=== PATIENT | male | born 1955 | race Caucasian/White ===

== ENCOUNTER 2017-07-06 11:35 | Day surgery (SDC) | payer OTHER ==
[~2017-07-06] VITALS: Ht 172.7 cm; Wt 93.2 kg
[2017-07-06] MEDS ORDERED: LISINOPRIL (11:58)
[2017-07-06] MEDS ORDERED: OMEPRAZOLE (11:58)
[2017-07-06 12:00] VITALS: Ht 172.7 cm; Wt 93.2 kg
[2017-07-06 13:03] VITALS: BP 137/81; PULSE 72; RESP 18
--- NOTE | 2017-07-06 13:45 | OPPN ---
Date/Time of Note Date/Time of Note DATE: 07/06/17 TIME: 13:43 Operative Report Preoperative Diagnosis Screening Postoperative Diagnosis Small transverse colon polyp Internal hemorrhoids Operation/Procedure Performed Colonoscopy and biopsy Surgeon see signature line assistant bookkeeper None Anesthesia: moderate sedation Estimated blood loss: none Transfusion Required none Specimen Colon polyp Grafts/Implants none Complications none PASTOR SHAW MD Jul 06, 2017 13:45
[2017-07-06] MEDS ORDERED: MIDAZOLAM 1 MG/ML 2 ML INJ ONE ×2 (14:14)
[2017-07-06] MEDS ORDERED: FENTAnyl 50 MCG/ML VIAL ONE (14:14)
--- NOTE | 2017-07-06 17:04 | GILP ---
DATE OF PROCEDURE: 07/06/2017 PROCEDURE PERFORMED: Colonoscopy and biopsy. SURGEON: Jeevan Morales MD. PREOPERATIVE DIAGNOSIS: Screening colonoscopy. POSTOPERATIVE DIAGNOSES: 1. Colonoscopy all the way to the cecum. 2. Small transverse colon polyp was removed using biopsy forceps. 3. Internal hemorrhoids. INDICATIONS FOR PROCEDURE: The patient is a 61-year-old male patient who was scheduled for screening colonoscopy. The procedure and possible complications were well explained to the patient. He understood and consented to the procedure. DESCRIPTION OF PROCEDURE: Under influence of fentanyl and Versed, the colonoscope was carefully introduced in the rectum. Under direct vision, it was advanced all the way to the cecum. FINDINGS: The patient had a small transverse colon polyp and it was removed using biopsy forceps. Internal hemorrhoids. He tolerated the procedure very well. There was no complication from the procedure. At the end of procedure, he was awake with stable vital signs. He was discharged home in the care of his family. IMPRESSION: 1. Colonoscopy all the way to the cecum. 2. Small transverse colon polyp was removed using biopsy forceps. 3. Internal hemorrhoids. PLAN: Next screening colonoscopy in 10 years. Dictated By: MD CHRISTI Freed/diomedes/hugo /Document#: [id number]
== END 2017-07-06 14:26 | disposition home or self-care (01) ==
LOC: GIL 11:35 → EDBD 13:30 → GIL 14:26
PROVIDERS: ATTEND Internal Medicine Gastroenterology
DX: K63.5 Polyp of colon (principal); K64.8 Other hemorrhoids
CPT/HCPCS: 45380; 88305; J2250; J3010; Z7610